=== PATIENT | male | born 1945 ===

== ENCOUNTER → 2022-04-30 | Outpatient (REF) | payer SELFPAY ==
[2022-04-30 04:33] LABS: Color, Urine Brown (Yellow); Glucose, Dipstick Normal (Normal); Ketone-Dipstick 5 mg/dl (Negative); Leukocyte Esterase-Dipstick 100 /ul (Negative); Nitrite-Dipstick Positive (Negative); Occult Blood-Urine 10 /ul (Negative); Protein-Dipstick 30 mg/dl (Negative); Urine Clarity Turbid (Clear); Urine Urobilinogen 12 mg/dl (Normal)
[2022-04-30 05:39] LABS: Urine Bilirubin Dipstick 6 mg/dL (Negative)
== END ==
LOC: LABSPEC 04:21
PROVIDERS: Visit Provider Family Medicine
DX: N39.0 Urinary tract infection, site not specified (principal)
CPT/HCPCS: 81002; 87086